=== PATIENT | female | born 1965 | race Caucasian/White ===

== ENCOUNTER → 2017-02-23 | Outpatient (CLI) | payer BC | LOC: MC.RAD 07:34 | DX: Z12.31 Encounter for screening mammogram for malignant neoplasm of breast (principal) ==

== ENCOUNTER → 2018-02-26 | Outpatient (CLI) | payer BC | LOC: MC.RAD 10:20 | DX: Z12.31 Encounter for screening mammogram for malignant neoplasm of breast (principal) ==

== ENCOUNTER → 2019-03-07 | Outpatient (CLI) | payer BC | LOC: MC.RAD 14:44 | DX: Z12.31 Encounter for screening mammogram for malignant neoplasm of breast (principal) ==

== ENCOUNTER 2019-05-25 17:36 | Emergency (ER) | payer BC ==
[~2019-05-25] VITALS: Ht 162.6 cm; Wt 73.6 kg
[2019-05-25 17:54] VITALS: TEMP 97.4
[2019-05-25] MEDS ORDERED: ZOFRAN ODT4 MG SL (19:32)
[2019-05-25] MEDS ORDERED: NORCO 325 MG-51 TAB PO (19:32)
[2019-05-25 20:16] VITALS: BP 109/83; PULSE 78
== END 2019-05-25 20:16 | disposition home or self-care (01) ==
LOC: COL.ER 17:36
DX: S82.831A Other fracture of upper and lower end of right fibula, initial encounter for closed fracture (principal); S82.301A Unspecified fracture of lower end of right tibia, initial encounter for closed fracture; X50.1XXA Overexertion from prolonged static or awkward postures, initial encounter; Y93.54 Activity, bowling
CPT/HCPCS: J7030; Q4045

== ENCOUNTER → 2020-03-26 | Outpatient (CLI) | payer BC, OTHER ==
[~2020-03-26] MED LIST: NORCO 325 MG-51 TAB PO; ZOFRAN ODT4 MG SL
== END ==
LOC: MC.RAD 03-23 13:30
DX: Z12.31 Encounter for screening mammogram for malignant neoplasm of breast (principal)

== ENCOUNTER → 2021-03-29 | Outpatient (CLI) | payer BC | LOC: MC.RAD 14:28 | DX: Z12.31 Encounter for screening mammogram for malignant neoplasm of breast (principal) ==

== ENCOUNTER → 2022-04-14 | Outpatient (CLI) | payer BC | LOC: MC.RAD 08:09 | DX: Z12.31 Encounter for screening mammogram for malignant neoplasm of breast (principal) ==

== ENCOUNTER → 2024-04-23 | Outpatient (CLI) | payer BC | LOC: MC.RAD 09:01 | DX: Z12.31 Encounter for screening mammogram for malignant neoplasm of breast (principal) ==